=== PATIENT | female | born 1980 | race Asian ===

== ENCOUNTER 2022-09-09 14:27 | Emergency (ER) | payer OTHER, SELFPAY ==
--- NOTE | ~2022-09-09 | XR_ITS ---
EXAMINATION: XR shoulder RT min 2V INDICATION: Right shoulder pain TECHNIQUE: Four views of the right shoulder are submitted. COMPARISON: None FINDINGS: Normal alignment. No fracture. Glenohumeral and acromioclavicular joint spaces are normal. Soft tissues are unremarkable. IMPRESSION: 1. No acute osseous abnormality. Reviewed, dictated and finalized at location A. [facility] FEEDER
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
[2022-09-09 14:29] VITALS: BP 123/78; PULSE 71; RESP 18; TEMP 36.3; O2SAT 100
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
[2022-09-09] MEDS: KETOROLAC 30 MG/ML VIAL (*BKC) IM (15:36)
[2022-09-09] MEDS: Please add drug allergy info to patient profile. 1 EACH XX (15:42)
== END 2022-09-09 17:44 | disposition home or self-care (01) ==
PROVIDERS: Emergency Provider Physician Assistant
DX: M25.511 Pain in right shoulder (principal); V89.2XXA Person injured in unspecified motor-vehicle accident, traffic, initial encounter
CPT/HCPCS: 72125; 73030; 96372; 99284; J1885